=== PATIENT | male | born 1995 | race Caucasian/White ===

== ENCOUNTER 2017-02-10 10:58 | Emergency (ER) | payer OTHER ==
[2017-02-10 11:06] VITALS: BP 134/69
[2017-02-10] MEDS ORDERED: Triamcinolone Acetonide* 40 MG/ML 1 ML VIAL IM ONE (11:27)
[2017-02-10] MEDS ORDERED: predniSONE TAB* 20 MG PO ONE (11:28)
--- NOTE | 2017-02-10 11:34 | UC ---
Skin Complaint HPI - HPI Summary HPI Summary: 21 yo male with the onset on severe pruritic rash after camping x 4-5 days - History of Current Complaint Chief Complaint: UCRash Time Seen by Provider: 02/10/17 11:03 Stated Complaint: SWOLLEN HEAD RASH Hx Obtained From: Patient Onset/Duration: Gradual Onset, Lasting Weeks Timing: Constant Onset Severity: Mild Current Severity: Severe Pain Intensity: 0 Pain Scale Used: 0-10 Numeric Location: Diffuse Character: Swelling, Pruritus, Redness Aggravating Factor(s): Nothing Alleviating Factor(s): Antihistamines Associated Signs & Symptoms: Positive: Rash - Allergy/Home Medications Allergies/Adverse Reactions: Allergies Allergy/AdvReac Type Severity Reaction Status Date / Time Penicillins Allergy Unknown Unknown Verified 02/10/17 11:06 Reaction Details Home Medications: Home Medications Oxycodone TAB(NF) [Oxycodone HCl 10 MG] 10 mg PO Q6H PRN 02/10/17 [History Confirmed 02/10/17] Review of Systems Constitutional: Negative Skin: Rash Eyes: Negative ENT: Negative Respiratory: Negative Cardiovascular: Negative Gastrointestinal: Negative Genitourinary: Negative Motor: Negative Neurovascular: Negative Musculoskeletal: Negative Neurological: Negative Psychological: Negative Is Patient Immunocompromised?: No All Other Systems Reviewed And Are Negative: Yes PMH/Surg Hx/FS Hx/Imm Hx Previously Healthy: Yes Other History Of: Negative For: HIV, Hepatitis B, Hepatitis C, Anticoagulant Therapy - Surgical History Surgical History: None - Family History Known Family History: Positive: Hypertension Negative: Cardiac Disease, Diabetes - Social History Alcohol Use: None Substance Use Type: None Smoking Status (MU): Never Smoked Tobacco - Immunization History Most Recent Tetanus Shot: [place] <5 YEARS ( OF 04/23/16) Vaccination Up to Date: Yes Physical Exam Triage Information Reviewed: Yes Appearance: Well-Appearing, No Pain Distress, Well-Nourished Vital Signs: Initial Vital Signs Temp 98.1 F 02/10/17 11:03 Pulse 96 02/10/17 11:03 Resp 18 02/10/17 11:03 BP 134/69 02/10/17 11:03 Pulse Ox 99 02/10/17 11:03 Vital Signs Reviewed: Yes Eyes: Positive: Conjunctiva Clear ENT: Positive: Hearing grossly normal. Negative: Nasal congestion, Nasal drainage, Trismus, Muffled/hoarse voice Neck: Positive: Supple, Nontender, No Lymphadenopathy Respiratory: Positive: Lungs clear, Normal breath sounds, No respiratory distress, No accessory muscle use Cardiovascular: Positive: RRR, No Murmur Musculoskeletal: Positive: Strength Intact, ROM Intact Neurological: Positive: Alert Psychological Exam: Normal Skin: Positive: Other - rash c/w contact derm- lid edema/ Course/Dx - Diagnoses Provider Diagnoses: contact dermatitis Discharge - Discharge Plan Condition: Stable Disposition: HOME Patient Education Materials: Poison Earlene (ED), Cold Compress or Soak (ED) Referrals: Yareli AVALOS,Zamzam Arreola [Primary Care Provider] - 5 Days (if not improving) Additional Instructions: oral benadryl for itch
== END 2017-02-10 11:55 | disposition home or self-care (01) ==
LOC: UCEAST 10:58
DX: L25.9 Unspecified contact dermatitis, unspecified cause (principal); Z88.0 Allergy status to penicillin
CPT/HCPCS: 96372; 99212; G0463; J3301; J7512

== ENCOUNTER 2023-01-18 15:49 | Inpatient (IN) ==
[2023-01-18 18:03] LABS: Albumin 4.8 g/dL (3.2-5.2); Anion Gap 8 mmol/L (2-16); CO2 Carbon Dioxide 24 mmol/L (22-32); Calcium 9.7 mg/dL (8.6-10.3); Chloride 109 mmol/L (101-111); Potassium 3.9 mmol/L (3.5-5.0); Sodium 141 mmol/L (135-145)
[2023-01-18 18:04] LABS: ABS Lymphocytes 2.6 10^3/uL (1.0-4.8); ABS Monocytes 0.7 10^3/uL (0.0-1.1); ABS Nucleated RBC 0.01 10^3/ul; Eosinophil % 0.1 %; Hematocrit 50.3 % (38-53); Hemoglobin 16.8 g/dL (13.2-16.3); Lymphocyte % 19.5 %; Mean Corpuscular Hemoglobin 30.1 pg (27-33); Mean Corpuscular Hgb Conc 33.4 g/dL (31-36); Mean Corpuscular Volume 90.4 fL (80-97); Mean Platelet Volume 8.3 fL (7.5-11.2); Nucleated Red Blood Cells % 0.1 /100 WBC (0.0-0.4); Platelet Count 230 10^3/uL (150-450); Red Blood Count 5.56 10^6/uL (4.06-5.63); Red Cell Distribution Width 14.7 % (12-17); White Blood Count 13.3 10^3/uL (3.6-10.2)
[2023-01-18 18:07] LABS: Acetaminophen < 15 mcg/mL; Alcohol, S < 13 mg/dL (<13); Salicylate < 2.50 mg/dL (<30)
[2023-01-18 18:09] LABS: ALT 24 U/L (7-52); AST 19 U/L (13-39); Albumin/Globulin Ratio 1.5 (1-3); Alkaline Phosphatase 59 U/L (35-149); Blood Urea Nitrogen 18 mg/dL (6-24); Creatinine, Serum 0.92 mg/dL (0.67-1.17); Globulin 3.1 g/dL (2-4); Glucose 85 mg/dL (70-100); Total Protein 7.9 g/dL (6.4-8.9); eGFR CKD-EPI 116.9 (>60)
[2023-01-18 18:18] LABS: Urine Benzodiazepine Screen None Detected (None Detect); Urine Cannabinoids Screen None Detected (None Detect); Urine Opiates Screen None Detected (None Detect)
[2023-01-18 19:01] LABS: TSH Ultra Thyroid Stim Horm 1.61 mcIU/mL (0.34-5.60)
[2023-01-18] MEDS ORDERED: Al Hydrox/Mg Hydrox/Simet LIQ 30 ML UDC PO PRN (22:09)
[2023-01-19] MEDS: Vitamin THERAPEUTIC TAB PO SCH (08:24)
[2023-01-19] MEDS: Nicotine GUM 2MG FRUIT FLAVOR PO PRN ×3 (08:24→20:28)
[2023-01-19] MEDS: Nicotine PATCH 21 MG/24 HR PATCH TRANSDERM SCH (08:43)
[2023-01-20 08:13] LABS: HDL Cholesterol 35.5 mg/dL
[2023-01-20] MEDS: Nicotine PATCH 21 MG/24 HR PATCH TRANSDERM SCH (08:19)
[2023-01-20] MEDS: Nicotine GUM 2MG FRUIT FLAVOR PO PRN ×2 (08:19→16:54)
[2023-01-20] MEDS: Vitamin THERAPEUTIC TAB PO SCH (08:19)
[2023-01-21] MEDS: Vitamin THERAPEUTIC TAB PO SCH (09:59)
[2023-01-21] MEDS: Nicotine PATCH 21 MG/24 HR PATCH TRANSDERM SCH (10:04)
[2023-01-21] MEDS: Nicotine GUM 2MG FRUIT FLAVOR PO PRN ×2 (10:13→12:33)
[2023-01-21] MEDS ORDERED: Benztropine 2 mg AMP 1 MG/ML 2 ml AMP IM ONE (11:22)
[2023-01-21] MEDS ORDERED: OLANZapine 5 mg TAB *ODT PO PRN (16:10)
[2023-01-22] MEDS: Nicotine GUM 2MG FRUIT FLAVOR PO PRN ×3 (08:17→15:18)
[2023-01-22] MEDS: Vitamin THERAPEUTIC TAB PO SCH (08:17)
[2023-01-22] MEDS: Nicotine PATCH 21 MG/24 HR PATCH TRANSDERM SCH (08:33)
[2023-01-23] MEDS: Nicotine GUM 2MG FRUIT FLAVOR PO PRN ×5 (07:39→17:29)
[2023-01-23] MEDS: Nicotine PATCH 21 MG/24 HR PATCH TRANSDERM SCH (07:39)
[2023-01-23] MEDS: Vitamin THERAPEUTIC TAB PO SCH (07:39)
[2023-01-24] MEDS: Vitamin THERAPEUTIC TAB PO SCH (07:56)
[2023-01-24] MEDS: Nicotine GUM 2MG FRUIT FLAVOR PO PRN ×2 (07:58→12:11)
[2023-01-24 10:42] VITALS: BP 106/63
[2023-01-25] MEDS: Vitamin THERAPEUTIC TAB PO SCH (08:07)
[2023-01-25] MEDS: Nicotine GUM 2MG FRUIT FLAVOR PO PRN ×2 (08:07→11:09)
[2023-01-25] MEDS: Nicotine PATCH 21 MG/24 HR PATCH TRANSDERM SCH ×2 (08:07→08:13)
== END 2023-01-25 11:30 | disposition home or self-care (01) | DRG 774 ==
LOC: ED 15:49 → EDHOLD 21:50 → BSU 01-19 00:42
PROVIDERS: ADMIT Psychiatry & Neurology Addiction Psychiatry; ATTEND Psychiatry & Neurology Addiction Psychiatry